=== PATIENT | female | born 2000 | race Asian ===

== ENCOUNTER 2023-12-06 17:18 | Inpatient (IN) | payer BC, SELFPAY ==
[2023-12-06 17:36] VITALS: BP 118/72; BP 119/73; PULSE 77; PULSE 92; RESP 16; TEMP 37.2; O2SAT 97; O2SAT 98; BMI 21.5
[2023-12-06 17:43] VITALS: RESP 14
[2023-12-06 18:26] LABS: MANUAL DIFF FLAG NO
[2023-12-06 18:27] LABS: Basophils Absolute Auto 0.1 X10*3/uL (0.0-0.2); Basophils Percent Auto 0.6 % (0-2); Eosinophils Absolute Auto 0.1 X10*3/uL (0.0-0.4); Eosinophils Percent Auto 0.6 % (0-4); Hematocrit 37.5 % (37.0-47.0); Hemoglobin 13.5 g/dl (12.0-16.0); Imm Gran Abs Auto 0.04 X10*3/uL (0.00-0.03); Imm Gran Pct Auto 0.5 % (0.0-0.4); Lymphocytes Absolute Auto 1.3 X10*3/uL (1.2-4.9); Lymphocytes Percent Auto 14.6 % (20-40); Mean Corpuscular Hemoglobin 29.3 pg (27.0-33.0); Mean Corpuscular Volume 81.3 fL (80.0-98.0); Mean Platelet Volume 9.4 fL (9.4-12.3); Monocytes Absolute Auto 0.5 X10*3/uL (0.1-1.2); Monocytes Percent Auto 5.9 % (2-11); Neutrophils Absolute Auto 6.7 x10*3/uL (2.0-8.3); Neutrophils Percent Auto 77.8 % (45-73); Platelet Count 308 X10*3/uL (160-400); Red Blood Count 4.61 X10*6/uL (4.20-5.50); Red Cell Distribution Width 11.9 % (11.0-16.0); White Blood Count 8.7 X10*3/uL (4.8-10.8)
[2023-12-06 18:32] LABS: Amphetamine Screen Urine Not Detected (Not Detect); Barbiturates, Urine Not Detected (Not Detect); Benzodiazepines Screen Urine Not Detected (Not Detect); Buprenorphine Scr Not Detected (Not Detect); Cannabinoid Screen Urine Not Detected (Not Detect); Cocaine Screen Urine Not Detected (Not Detect); Fentanyl, urine Not Detected (Not Detect); Methadone Screen, Urine Not Detected (Not Detect); Opiate Screen Urine Not Detected (Not Detect); Oxycodone Screen Urine Not Detected (Not Detect); Phencyclidine Screen Urine Not Detected (Not Detect)
--- NOTE | 2023-12-06 18:37 | ED.GENADULT ---
HPI - General Adult General Chief complaint: Psychiatric Symptoms Stated complaint: SI Time Seen by Provider: 12/06/23 17:59 Source: patient Mode of arrival: ambulatory Limitations: no limitations History of Present Illness HPI narrative: 23-year-old history of PTSD from her time in [facility] presents to ED for suicidal thoughts with no specific plan. Patient states she received some bad news from her home country again extend this triggered her suicidal thoughts. Patient states she is compliant with her psych meds and therapy. Related Data Home Medications ?Medication ?Instructions ?Recorded ?Confirmed escitalopram oxalate 10 mg tablet 10 mg PO DAILY 12/06/23 12/06/23 Allergies Allergy/AdvReac Type Severity Reaction Status Date / Time No Known Allergies Allergy Verified 12/06/23 17:41 Review of Systems Review of Systems: Suicidal thoughts no plan Yes all other systems are reviewed and are negative [facility] Social History Social History Household Members: None Housing Other:: Dorm at school Do you presently have visiting nurse or other home services: No Patient Tobacco Use Status: Never used Tobacco Smoked in Last 30 Days: No Use of substances other than those prescribed or required for medical reasons: No Currently Displaying Signs/Symptoms of Drug Intoxication Withdrawal: No Have you been hit, kicked, punched, or otherwise hurt by someone within the past year? If so, by whom?: No Do you feel safe in your current relationship?: No Current Relationship Is there a partner from a previous relationship who is making you feel unsafe now?: No Are you made to feel afraid or neglected: No Advance Directives: No Advance Directives Information Provided: No Do you have thoughts of harming others: None Do you have a plan to hurt others: No Plan Recently lost weight without trying: No Eating poorly because of decreased appetite: No Nutrition Risks: No Nutritional Risk Patient : No : No Poor oral hygiene: No Physical Exam ED Vital Signs: Vital Signs - 24 hr 12/06/23 17:36 12/06/23 17:43 Temperature 98.9 F Pulse Rate 77 Respiratory Rate 16 14 Blood Pressure 119/73 Pulse Oximetry 98 Oxygen Delivery Method Room Air BMI result Body Mass Index 21.5 Const General: cooperative, healthy appearing, comfortable, no acute distress, well developed, alert, awake and Physically active Orientation/consciousness: oriented to person, oriented to place, oriented to time and patient oriented x3 HENMT Head: Yes normal to inspection, Yes No palpable skull fracture present, Yes normocephalic, Yes atraumatic and No abrasion Eyes General: appearance normal, both eyes and all related structures Neck Neck: Yes normal visual inspection, Yes full ROM, Yes no lymphadenopathy, Yes no meningeal signs, Yes trachea midline, Yes supple, No anterior neck swelling and No tender Chest Chest palpation & inspection: normal inspection of the chest and normal palpation of entire chest wall Resp Effort & Inspection: normal respiratory effort and able to speak in complete sentences Auscultation: clear to auscultation bilaterally Cardio Jugular venous distension: no JVD Heart sounds: S1 normal heart sound present and S2 normal heart sound present GI Inspection: Yes normal to inspection Palpation (GI): Soft to palpation, not firm, nontender, no guarding and not rigid General: No CVA tenderness and Yes no CVA tenderness Back/Spine/Pelvis Back: no CVA tenderness, No CVA tenderness and No back tenderness Skin General skin exam: no rashes or lesions noted, elasticity normal and turgor normal Neuro General: oriented to person, oriented to place, oriented to time, patient oriented x3, gait normal, tone normal, moves all extremities, Normal light touch and pain sensation, no meningeal signs, no focal motor deficits, CN's II-XI intact bilaterally and normal sensation to monofilament Extrem General: Yes normal to inspection, Yes full ROM and Yes capillary refill normal Psych Appearance: grossly normal, well kempt and not disheveled Medications Administered Generic Name Dose Route Start Last Admin Trade Name Freq PRN Reason Stop Dose Admin Acetaminophen 650 mg 12/07/23 14:12 12/07/23 15:36 Acetaminophen 325 Mg Tablet PO 650 mg Q6H PRN Administration Headache/Pain Mild Scale (1-3) Lorazepam 1 mg 12/07/23 19:33 12/07/23 21:31 Lorazepam 1 Mg Tablet PO 1 mg BEDTIME PRN Administration anxiety Trazodone HCl 25 mg 12/07/23 19:35 12/07/23 21:31 Trazodone Hcl 25 Mg Halftab PO 25 mg BEDTIME MRX1 PRN Administration Insomnia Discontinued Medications Generic Name Dose Route Start Last Admin Trade Name Freq PRN Reason Stop Dose Admin Lorazepam 1 mg 12/07/23 04:56 12/07/23 05:00 Lorazepam 1 Mg Tablet PO 12/07/23 04:57 1 mg ONCE ONE Administration Melatonin 6 mg 12/07/23 01:26 12/07/23 01:31 Melatonin 3 Mg Tablet PO 12/07/23 01:27 6 mg ONCE ONE Administration Medical Decision Making Medical Decision Making [facility] Narrative: 3-year-old female presents to the ED for suicidal thoughts with no plan. Labs ordered pending care team evaluation. 3:34am: Patient's labs are stable. Patient evaluated by care team. Patient will be bed inpatient search. Differential Diagnosis Differential Diagnoses: The differential diagnosis associated with the presentation includes (Suicidal, PTSD) Consult Healthcare Provider Management of the patient was discussed with: Check And Transfer Beader (Care team) Lab Data [facility] Lab Attestation statement: I reviewed the patient's lab results. 12/06/23 18:18 12/06/23 18:18 Labs: Lab Results 12/06/23 12/06/23 Range/Units 18:03 18:18 WBC 8.7 (4.8-10.8) X10*3/uL RBC 4.61 (4.20-5.50) X10*6/uL Hgb 13.5 (12.0-16.0) g/dl Hct 37.5 (37.0-47.0) % MCV 81.3 (80.0-98.0) fL MCH 29.3 (27.0-33.0) pg MCHC 36.0 H (31.0-35.0) g/dl RDW 11.9 (11.0-16.0) % Plt Count 308 (160-400) X10*3/uL MPV 9.4 (9.4-12.3) fL Immature Gran % (Auto) 0.5 H (0.0-0.4) % Neut % (Auto) 77.8 H (45-73) % Lymph % (Auto) 14.6 L (20-40) % [place] % (Auto) 5.9 (2-11) % Eos % (Auto) 0.6 (0-4) % Baso % (Auto) 0.6 (0-2) % Lymph # (Auto) 1.3 (1.2-4.9) X10*3/uL [place] # (Auto) 0.5 (0.1-1.2) X10*3/uL Eos # (Auto) 0.1 (0.0-0.4) X10*3/uL Baso # (Auto) 0.1 (0.0-0.2) X10*3/uL Abs Immat Gran (auto) 0.04 H (0.00-0.03) X10*3/uL Absolute Neuts (auto) 6.7 (2.0-8.3) x10*3/uL Absolute Nucleated RBC 0.000 (0.0-0.012) X10*3/uL Nucleated RBC % (auto) 0.0 (0.0-0.2) /100WBC Sodium 139 (135-145) mmol/L Potassium 3.8 (3.3-5.1) mmol/L Chloride 106 (96-108) mmol/L Carbon Dioxide 21 L (22-29) mmol/L Anion Gap 16 (12-20) BUN 6 L (9-16) mg/dL Creatinine 0.69 (0.5-1.4) mg/dL Estim Creat Clear Calc 92.6 Estimated GFR > 60 Random Glucose 95 (60-115) mg/dL Calcium 9.8 (8.4-10.2) mg/dL Total Bilirubin 0.5 (0.0-1.0) mg/dL AST 21 (5-31) U/L ALT 15 (0-31) U/L Alkaline Phosphatase 75 (39-117) U/L Total Protein 8.3 H (6.5-8.0) g/dL Albumin 4.8 (3.5-5.0) g/dL Urine Color Yellow Urine Appearance Clear Urine pH 7.0 (5.0-9.0) Ur Specific [place] <= 1.005 (1.005-1.025) Urine Protein Negative (Neg-Trace) mg/dL Urine Glucose (UA) Negative (Negative) mg/dL Urine Ketones Negative (Negative) mg/dL Urine Blood Negative (Negative) Urine Nitrite Negative (Negative) Ur Leukocyte Esterase Moderate (2+) H (Negative) Urine RBC 0-2 (0-2) /HPF Urine WBC 0-5 (0-5) /HPF Ur Squamous Epith Cells 0-2 (0-2) /HPF Urine Bacteria None Seen (None Seen) Hyaline Casts 0-2 (0-2) /LPF Urine Opiates Screen Not Detected (Not Detect) Ur Buprenorphine Scrn Not Detected (Not Detect) ng/mL Ur Oxycodone Screen Not Detected (Not Detect) ng/mL Urine Methadone Screen Not Detected (Not Detect) ng/mL Urine Fentanyl Screen Not Detected (Not Detect) Ur Barbiturates Screen Not Detected (Not Detect) Ur Phencyclidine Scrn Not Detected (Not Detect) Ur Amphetamines Screen Not Detected (Not Detect) U Benzodiazepines Scrn Not Detected (Not Detect) Urine Cocaine Screen Not Detected (Not Detect) U Marijuana (THC) Screen Not Detected (Not Detect) Ethyl Alcohol < 10 mg/dL Independent Historian Clinical information obtained from an independent historian. History obtained from or confirmed by: Other (Patient) External Record Review External record reviewed: Other (Prior visits) Discharge Plan Discharge Clinical Impression: Post traumatic stress disorder Patient Disposition: Still a Patient Discharge Date/Time: 12/07/23 13:47
[2023-12-06 18:41] LABS: Appearance Urine Clear; Color Urine Yellow; Glucose Urine UA Negative (Negative); Leukocyte Esterase Urine Moderate (2+) (Negative); Nitrite Urine Negative (Negative); Specific Gravity - Urine <= 1.005 (1.005-1.025); UMIC TRIGGER UACC YES; Urine Blood Negative (Negative); Urine Ketones Negative (Negative); Urine Protein Negative (Neg-Trace)
[2023-12-06 18:43] LABS: Alanine Aminotransferase 15 U/L (0-31); Albumin Level 4.8 g/dL (3.5-5.0); Alkaline Phosphatase 75 U/L (39-117); Anion Gap 16 (12-20); Aspartate Amino Transferase 21 U/L (5-31); Bilirubin Total 0.5 mg/dL (0.0-1.0); Blood Urea Nitrogen 6 mg/dL (9-16); Calcium 9.8 mg/dL (8.4-10.2); Carbon Dioxide 21 mmol/L (22-29); Chloride 106 mmol/L (96-108); Creatinine Clr Calc Pharmacy 92.6; Estimated Glomerular Filt Rate > 60; Ethanol < 10 mg/dL; Glucose Random 95 mg/dL (60-115); Potassium 3.8 mmol/L (3.3-5.1); Sodium 139 mmol/L (135-145); Total Protein 8.3 g/dL (6.5-8.0)
[2023-12-06 18:59] LABS: Bacteria Urine None Seen (None Seen); Hyaline Casts Urine 0-2 /LPF (0-2); RBC Urine 0-2 /HPF (0-2); Squamous Epithelial Cell Urine 0-2 /HPF (0-2); WBC Urine 0-5 /HPF (0-5)
--- NOTE | 2023-12-06 19:07 | PC.NURSE ---
patient appears to remain at rest at present respirations are even and unlabored patient appears in no distress.
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
[2023-12-07] MEDS: Melatonin 3 MG TABLET 6 MG PO (01:31)
[2023-12-07 04:37] VITALS: BP 124/79; PULSE 86; RESP 15; TEMP 36.4; O2SAT 98
[2023-12-07] MEDS: LORazepam 1 MG TABLET PO ×2 (05:00→21:31)
--- NOTE | 2023-12-07 08:15 | PC.NURSE ---
assumed care of patient at 0645, patient appears to be sleeping, respirations even and unlabored, no apparent distress noted. Patient remains S12 inpatient bedsearch
[2023-12-07 11:46] VITALS: PULSE 69; RESP 16; O2SAT 98
[2023-12-07 14:49] VITALS: BP 110/70; PULSE 87; RESP 14; TEMP 36.8; O2SAT 97
[2023-12-07 15:00] VITALS: BMI 20.5
[2023-12-07] MEDS: Acetaminophen 325 MG TABLET 650 MG PO (15:36)
--- NOTE | 2023-12-07 16:57 | PC.ADMIT ---
12/07/23 Jena Puentes is a 23 year old female that was admitted to [facility] from the Pod on a CV for treatment of SI. Pt has diagnosis of PTSD, MDD, and Borderline personality d/o. Pt reported that she has had some recent stressors that triggered her suicidal thoughts. She had heard some news from back home about her mother becoming more ill. Per crisis eval. pt was sent to ER via [facility] crisis team d/t pt stating she had tied a noose and secured rope around neck. Pt denied this to TW she reported I don't know why the counselor sent me here, I don't think I did anything wrong. I was talking to them casually I think it was more my imagination then me doing anything to myself. Pt was calm, pleasant and cooperative with admission assessment. Pt was A&O x4. Pt mood is anxious and bright. Affect was anxious. Pt has no prior in-patient hospitalizations. Pt denies SI or HI at this time. Pt has no plan or intent at this time. Pt denies AH or VH. No overt psychosis or expressed delusions observed at this time. Pt denies any acute medical issues. Pt thought process was linear ut did report a hard time focusing d/t being in an unfamiliar place.. Pt reports her appetite has been good but healthy. No recent weight loss reported. Pt reports she sometimes has a hard time getting to sleep especially here with all this noise. Pt tox screen was negative. Pt complied with skin check and clothing change house attendant. Pt was placed on 15 minute checks for safety.
[2023-12-07 19:45] VITALS: BP 129/72; PULSE 100; RESP 16; TEMP 37; O2SAT 98
[2023-12-07] MEDS: traZODone HCL 25 MG HALFTAB PO (21:31)
[2023-12-08 07:00] VITALS: BMI 21.0
[2023-12-08 08:00] VITALS: BP 115/75; PULSE 97; RESP 14; TEMP 36.9; O2SAT 95
[2023-12-08] MEDS: Escitalopram Oxalate 10 MG TABLET PO (08:54)
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
[2023-12-08 09:43] LABS: Alanine Aminotransferase 16 U/L (0-31); Albumin Level 4.4 g/dL (3.5-5.0); Alkaline Phosphatase 68 U/L (39-117); Anion Gap 14 (12-20); Aspartate Amino Transferase 19 U/L (5-31); Bilirubin Total 0.4 mg/dL (0.0-1.0); Blood Urea Nitrogen 7 mg/dL (9-16); Calcium 10.1 mg/dL (8.4-10.2); Carbon Dioxide 22 mmol/L (22-29); Chloride 106 mmol/L (96-108); Cholesterol 155 mg/dL (<200); Creatinine Clr Calc Pharmacy 84.2; Estimated Glomerular Filt Rate > 60; Glucose Fasting 94 mg/dL (60-99); HDL Cholesterol 52 mg/dL (>40); LDL Cholesterol Calculated 92 mg/dL (<100); Potassium 3.7 mmol/L (3.3-5.1); Sodium 138 mmol/L (135-145); Total Protein 7.5 g/dL (6.5-8.0); Triglycerides 57 mg/dL (<150)
[2023-12-08 09:58] LABS: Free T4 (Free Thyroxine) 1.08 ng/dL (0.71-1.85); Thyroid Stimulating Hormone 2.59 uIU/mL (0.32-4.0)
[2023-12-08 11:48] LABS: Folate 10.1 ng/mL (> or = 4.0); Vitamin B12 305 pg/mL (200-900)
[2023-12-08 20:27] VITALS: BP 130/84; PULSE 78; RESP 16; TEMP 36.9; O2SAT 96
[2023-12-08] MEDS: Melatonin 3 MG TABLET PO (21:23)
[2023-12-09 07:40] VITALS: BP 121/72; PULSE 93; RESP 16; TEMP 36.9; O2SAT 96
[2023-12-09] MEDS: Escitalopram Oxalate 10 MG TABLET PO (08:51)
--- NOTE | 2023-12-09 08:53 | HO.PSYCHPN ---
Subjective Subjective Date of Service: 12/09/23 Reason For Visit: SI Subjective Notes: Conditional Voluntary Interim History: Reviewed with Dr. Davies. Social with peers. Pt reports feeling good today; pt stated, I'm not anxious or depressed. I'm just waiting to go back to school. I just wanting to meet with a therapist regularly . Pt continues to report that she lied about being suicidal ; pt denies SI/HI/VH/AH. Medication Compliance: Yes Side effects from medications: No Attending Groups: Yes Review of Systems Constitutional: Reports as per HPI Eyes: Reports as per HPI Reports as per HPI Cardiovascular: Reports as per HPI Respiratory: Reports as per HPI Gastrointestinal: Reports as per HPI Musculoskeletal: Reports as per HPI Skin/Breast: Reports as per HPI Reports as per HPI Psychiatric: Reports as per HPI Endocrine: Reports as per HPI Hematologic/Lymphatic: Reports as per HPI Allergic/Immunologic: Reports as per HPI Mental Status Exam Mental Status Exam Narrative: Pt is alert and oriented; behavior is cooperative, friendly and calm; dressed in casual attire; mood is described as good ; eye contact appropriate; Speech is normal rate, volume and prosody and not pressured; thought process is organized and goal directed; Thought content is on tx; otherwise pertinent to relevant topics and without any delusional content, paranoid ideations or grandiosity; denies SI/HI/VH/AH. Diagnostics Vital Signs (24Hr): Vital Signs - 24 hr 12/08/23 20:27 12/09/23 07:40 Temperature 98.5 F 98.4 F Pulse Rate 78 93 Respiratory Rate 16 16 Blood Pressure 130/84 121/72 Pulse Oximetry 96 96 Oxygen Delivery Method Room Air Room Air BMI result Body Mass Index 21.0 Labs 12/06/23 18:18 12/08/23 09:07 Labs: Laboratory Results - last 48 hr 12/08/23 09:07 Sodium 138 Potassium 3.7 Chloride 106 Carbon Dioxide 22 Anion Gap 14 BUN 7 L Creatinine 0.72 Estim Creat Clear Calc 84.2 Estimated GFR > 60 Fasting Glucose 94 Calcium 10.1 Total Bilirubin 0.4 AST 19 ALT 16 Alkaline Phosphatase 68 Total Protein 7.5 Albumin 4.4 Triglycerides 57 Cholesterol 155 LDL Cholesterol, Calc 92 HDL Cholesterol 52 Vitamin B12 305 Folate 10.1 TSH 2.59 Free T4 1.08 Medications Medications Current Medications Acetaminophen (Acetaminophen 325 Mg Tablet) 650 mg PO Q6H PRN PRN Reason: Headache/Pain Mild Scale (1-3) Last Admin: 12/07/23 15:36 Dose: 650 mg Al Hydroxide/Mg Hydroxide (Magnesium Hydrox/Alum Hydrox 30 Ml Oral.Susp) 30 ml PO Q6H PRN PRN Reason: Heartburn/Nausea Escitalopram Oxalate (Escitalopram Oxalate 10 Mg Tablet) 10 mg PO DAILY SHANNAN Last Admin: 12/09/23 08:51 Dose: 10 mg Hydroxyzine HCl (Hydroxyzine Hcl 25 Mg Tablet) 25 mg PO Q6H PRN PRN Reason: Anxiety Magnesium Hydroxide (Milk Of Magnesia 30 Ml Oral.Susp) 30 ml PO DAILY PRN PRN Reason: Constipation Melatonin (Melatonin 3 Mg Tablet) 3 mg PO BEDTIME PRN PRN Reason: Insomnia Last Admin: 12/08/23 21:23 Dose: 3 mg Nicotine Polacrilex (Nicotine Polacrilex 2 Mg Gum) 4 mg BUCCAL Q2H PRN PRN Reason: Nicotine Cravings Trazodone HCl (Trazodone Hcl 25 Mg Halftab) 25 mg PO BEDTIME MRX1 PRN PRN Reason: Insomnia Last Admin: 12/07/23 21:31 Dose: 25 mg Allergies Allergies Allergy/AdvReac Type Severity Reaction Status Date / Time No Known Allergies Allergy Verified 12/06/23 17:41 Assessment & Plan Assessment & Plan (1) MDD (major depressive disorder), recurrent episode: Status: Acute Code(s): F33.9 - Major depressive disorder, recurrent, unspecified (2) Post traumatic stress disorder: Status: Acute Code(s): F43.10 - Post-traumatic stress disorder, unspecified Plan Patient is a 23 year old female with hx of MDD and PTSD who presented to ER via ambulance d/t suicidal ideation with plan to hang herself secondary to receiving news that her mother who is battling with cancer is not doing well. Plan: CV 15 minute safety checks Continue home medication Obtain collateral encourage groups referral to outpatient therapist and prescriber discharge planning 12/08: Social with peers. Pt reports feeling good today; pt stated, I'm not anxious or depressed. I'm just waiting to go back to school. I just wanting to meet with a therapist regularly . Pt continues to report that she lied about being suicidal ; pt denies SI/HI/VH/AH. Continue current tx plan. Patient educated on: diagnosis, medication risk/benefits and therapeutic strategies Informed Consent: understands Reason for continued inpatient stay Substantial Risk for: med/psych decompensation Time Spent With Patient Time: Total time managing care of this patient today _20___ minutes.
[2023-12-09 20:00] VITALS: BP 129/76; PULSE 84; RESP 16; TEMP 37.1; O2SAT 97
[2023-12-09] MEDS: Ondansetron ODT 4 MG TAB.RAPDIS TRANSLINGU (21:37)
[2023-12-09] MEDS: Melatonin 3 MG TABLET PO (21:38)
[2023-12-10 07:50] VITALS: BP 118/59; PULSE 95; RESP 16; TEMP 36.6; O2SAT 97
[2023-12-10] MEDS: Escitalopram Oxalate 5 MG TABLET PO (08:55)
[2023-12-10] MEDS: Acetaminophen 325 MG TABLET 650 MG PO ×2 (09:33→18:23)
--- NOTE | 2023-12-10 09:34 | PC.NURSE ---
pt reported 5/10 pain d/t menstrual cramps, pt requested Tylenol PRN, per provider ok to administer outside pain scale parameters.
--- NOTE | 2023-12-10 10:05 | HO.PSYCHPN ---
Subjective Subjective Date of Service: 12/10/23 Reason For Visit: SI Subjective Notes: Conditional Voluntary Interim History: met with patient. Discussed with Nursing. Overall patient reports being hopeful for discharge soon. Reports feeling less scared and anxious. Adamantly denies thoughts of suicide. Feels the Lexapro has been helpful. Aware that family and school support and engagement are important regarding disposition planning. Currently menstruating and ibuprofen ordered Medication Compliance: Yes Side effects from medications: No Attending Groups: No Review of Systems Acute medical concerns: No Review of Systems Review of Systems Unremarkable Mental Status Exam Mental Status Exam Narrative: in room. Hospital clothing. Self-care fair. Pleasant. Nervous. Denies depression. Denies SI or HI. No agitation or psychosis. Insight and judgment fair Diagnostics Vital Signs (24Hr): Vital Signs - 24 hr 12/09/23 20:00 12/10/23 07:50 Temperature 98.7 F 97.9 F Pulse Rate 84 95 Respiratory Rate 16 16 Blood Pressure 129/76 118/59 L Pulse Oximetry 97 97 Oxygen Delivery Method Room Air Room Air BMI result Body Mass Index 21.0 Labs 12/06/23 18:18 12/08/23 09:07 Labs: Laboratory Results - last 48 hr 12/08/23 09:07 Vitamin B12 305 Folate 10.1 Medications Medications Current Medications Acetaminophen (Acetaminophen 325 Mg Tablet) 650 mg PO Q6H PRN PRN Reason: Headache/Pain Mild Scale (1-3) Last Admin: 12/10/23 09:33 Dose: 650 mg Al Hydroxide/Mg Hydroxide (Magnesium Hydrox/Alum Hydrox 30 Ml Oral.Susp) 30 ml PO Q6H PRN PRN Reason: Heartburn/Nausea Escitalopram Oxalate (Escitalopram Oxalate 5 Mg Tablet) 5 mg PO DAILY [facility] Last Admin: 12/10/23 08:55 Dose: 5 mg Hydroxyzine HCl (Hydroxyzine Hcl 25 Mg Tablet) 25 mg PO Q6H PRN PRN Reason: Anxiety Magnesium Hydroxide (Milk Of Magnesia 30 Ml Oral.Susp) 30 ml PO DAILY PRN PRN Reason: Constipation Melatonin (Melatonin 3 Mg Tablet) 3 mg PO BEDTIME PRN PRN Reason: Insomnia Last Admin: 12/09/23 21:38 Dose: 3 mg Nicotine Polacrilex (Nicotine Polacrilex 2 Mg Gum) 4 mg BUCCAL Q2H PRN PRN Reason: Nicotine Cravings Trazodone HCl (Trazodone Hcl 25 Mg Halftab) 25 mg PO BEDTIME MRX1 PRN PRN Reason: Insomnia Last Admin: 12/07/23 21:31 Dose: 25 mg Allergies Allergies Allergy/AdvReac Type Severity Reaction Status Date / Time No Known Allergies Allergy Verified 12/06/23 17:41 Assessment & Plan Assessment & Plan (1) MDD (major depressive disorder), recurrent episode: Status: Acute Code(s): F33.9 - Major depressive disorder, recurrent, unspecified (2) Post traumatic stress disorder: Status: Acute Code(s): F43.10 - Post-traumatic stress disorder, unspecified Plan Patient is a 23 year old female with hx of MDD and PTSD who presented to ER via ambulance d/t suicidal ideation with plan to hang herself secondary to receiving news that her mother who is battling with cancer is not doing well. Plan: CV 15 minute safety checks Continue home medication Obtain collateral encourage groups referral to outpatient therapist and prescriber discharge planning 12/08: Social with peers. Pt reports feeling good today; pt stated, I'm not anxious or depressed. I'm just waiting to go back to school. I just wanting to meet with a therapist regularly . Pt continues to report that she lied about being suicidal ; pt denies SI/HI/VH/AH. Continue current tx plan. 12/10/2023: No changes to current plan Reason for continued inpatient stay Substantial Risk for: harm to self Time Spent With Patient Time: Total time managing care of this patient today ____ minutes.
[2023-12-10] MEDS: Ibuprofen 600 MG TABLET PO ×2 (12:38→20:40)
[2023-12-10 20:00] VITALS: BP 118/65; PULSE 81; O2SAT 98
[2023-12-10] MEDS: Melatonin 3 MG TABLET PO (20:41)
[2023-12-11 08:00] VITALS: BP 110/59; PULSE 78; RESP 18; TEMP 36.7; O2SAT 96
[2023-12-11] MEDS: Escitalopram Oxalate 5 MG TABLET PO (08:57)
[2023-12-11] MEDS: Ibuprofen 600 MG TABLET PO ×3 (09:04→21:01)
--- NOTE | 2023-12-11 10:37 | HO.PSYCHPN ---
Subjective Subjective Date of Service: 12/11/23 Reason For Visit: SI Interim History: Met with patient. Discussed with Nursing. Much brighter affect today. Visited with host mother. COnnecting with 2 other patients. Remains hopeful for discharge soon. Much less scared and anxious. Adamantly denies thoughts of suicide. Feels the Lexapro has been helpful. Medication Compliance: Yes Side effects from medications: No Attending Groups: Yes Review of Systems Acute medical concerns: No Review of Systems Review of Systems Unremarkable Mental Status Exam Mental Status Exam Narrative: in milieu. Hospital clothing. Self-care fair. Pleasant. Much less anxious. Denies depression. Denies SI or HI. No agitation or psychosis. Insight and judgment fair Diagnostics Vital Signs (24Hr): Vital Signs - 24 hr 12/10/23 20:00 12/11/23 08:00 Temperature 98.1 F Pulse Rate 81 78 Respiratory Rate 18 Blood Pressure 118/65 110/59 L Pulse Oximetry 98 96 Oxygen Delivery Method Room Air Room Air BMI result Body Mass Index 21.0 Labs 12/06/23 18:18 12/08/23 09:07 Medications Medications Current Medications Acetaminophen (Acetaminophen 325 Mg Tablet) 650 mg PO Q6H PRN PRN Reason: Headache/Pain Mild Scale (1-3) Last Admin: 12/10/23 18:23 Dose: 650 mg Al Hydroxide/Mg Hydroxide (Magnesium Hydrox/Alum Hydrox 30 Ml Oral.Susp) 30 ml PO Q6H PRN PRN Reason: Heartburn/Nausea Escitalopram Oxalate (Escitalopram Oxalate 5 Mg Tablet) 5 mg PO DAILY [facility] Last Admin: 12/11/23 08:57 Dose: 5 mg Hydroxyzine HCl (Hydroxyzine Hcl 25 Mg Tablet) 25 mg PO Q6H PRN PRN Reason: Anxiety Ibuprofen (Ibuprofen 600 Mg Tablet) 600 mg PO Q6H PRN PRN Reason: Menstral Cramps Last Admin: 12/11/23 09:04 Dose: 600 mg Magnesium Hydroxide (Milk Of Magnesia 30 Ml Oral.Susp) 30 ml PO DAILY PRN PRN Reason: Constipation Melatonin (Melatonin 3 Mg Tablet) 3 mg PO BEDTIME PRN PRN Reason: Insomnia Last Admin: 12/10/23 20:41 Dose: 3 mg Nicotine Polacrilex (Nicotine Polacrilex 2 Mg Gum) 4 mg BUCCAL Q2H PRN PRN Reason: Nicotine Cravings Trazodone HCl (Trazodone Hcl 25 Mg Halftab) 25 mg PO BEDTIME MRX1 PRN PRN Reason: Insomnia Last Admin: 12/07/23 21:31 Dose: 25 mg Allergies Allergies Allergy/AdvReac Type Severity Reaction Status Date / Time No Known Allergies Allergy Verified 12/06/23 17:41 Assessment & Plan Assessment & Plan (1) MDD (major depressive disorder), recurrent episode: Status: Acute Code(s): F33.9 - Major depressive disorder, recurrent, unspecified (2) Post traumatic stress disorder: Status: Acute Code(s): F43.10 - Post-traumatic stress disorder, unspecified Plan Patient is a 23 year old female with hx of MDD and PTSD who presented to ER via ambulance d/t suicidal ideation with plan to hang herself secondary to receiving news that her mother who is battling with cancer is not doing well. Plan: CV 15 minute safety checks Continue home medication Obtain collateral encourage groups referral to outpatient therapist and prescriber discharge planning 12/08: Social with peers. Pt reports feeling good today; pt stated, I'm not anxious or depressed. I'm just waiting to go back to school. I just wanting to meet with a therapist regularly . Pt continues to report that she lied about being suicidal ; pt denies SI/HI/VH/AH. Continue current tx plan. 12/10/2023: No changes to current plan 12/10: No changes. Aware that family and school support and engagement are important regarding disposition planning. Reason for continued inpatient stay Substantial Risk for: harm to self Time Spent With Patient Time: Total time managing care of this patient today ____ minutes.
[2023-12-11 19:45] VITALS: BP 130/69; PULSE 83; RESP 17; TEMP 36.9; O2SAT 96
[2023-12-11] MEDS: Acetaminophen 325 MG TABLET 650 MG PO (19:47)
[2023-12-11] MEDS: traZODone HCL 25 MG HALFTAB PO (23:12)
[2023-12-11] MEDS: Melatonin 3 MG TABLET PO (23:13)
[2023-12-12 07:58] VITALS: BP 117/56; PULSE 74; RESP 16; TEMP 36.9; O2SAT 98
[2023-12-12] MEDS: Escitalopram Oxalate 5 MG TABLET PO ×2 (08:17→11:15)
[2023-12-12] MEDS: Ibuprofen 600 MG TABLET PO (09:42)
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
== END 2023-12-12 11:44 | disposition home or self-care (01) | DRG 751 ==
LOC: HO.ED 12-07 03:37 → HO.PADLT16 12-07 11:48
PROVIDERS: Admitting Provider Registered Nurse; Emergency Provider Emergency Medicine; Responsible Provider Registered Nurse; Visit Provider Psychiatry & Neurology Psychiatry
DX: F33.9 Major depressive disorder, recurrent, unspecified (principal); R45.851 Suicidal ideations; F43.10 Post-traumatic stress disorder, unspecified; Z79.899 Other long term (current) drug therapy
CPT/HCPCS: 36415; 80053; 80061; 80307; 81001; 82607; 82746; 84439; 84443; 85025; 99284; S9485

== ENCOUNTER → 2023-12-07 11:34 | Outpatient (BNV) | payer BC, SELFPAY | PROVIDERS: Admitting Provider Registered Nurse; Emergency Provider Emergency Medicine; Responsible Provider Registered Nurse; Visit Provider Registered Nurse | DX: F33.9 Major depressive disorder, recurrent, unspecified (principal); F43.10 Post-traumatic stress disorder, unspecified | CPT/HCPCS: 90792; 99231; 99232; 99238 ==